=== PATIENT | male | born 1935 | race Caucasian/White ===

== ENCOUNTER 2017-11-13 18:43 | Inpatient (IN) | payer OTHER ==
[2017-11-13] MEDS: ACETAMINOPHEN 325 MG TAB PO (19:32)
[2017-11-13 19:39] LABS: ADD MAN DIFF? NO
[2017-11-13 19:43] LABS: ABNORMAL IP MESSAGE 1; BASOPHILS % 0.2 % (0.0-2.0); EOSINOPHILS % 0.1 % (0.0-7.0); HEMATOCRIT 34.5 % (42.0-52.0); HEMOGLOBIN 11.8 g/dl (14.0-18.0); LYMPHOCYTES # 0.1 10^3/ul (0.8-2.9); LYMPHOCYTES % 1.2 % (15.0-51.0); MEAN CORPUSCULAR HEMOGLOBIN 30.7 pg (29.0-33.0); MEAN CORPUSCULAR HGB CONC 34.2 g/dl (32.0-37.0); MEAN CORPUSCULAR VOLUME 89.8 fl (82.0-101.0); MEAN PLATELET VOLUME 9.2 fl (7.4-10.4); MONOCYTE # 0.1 10^3/ul (0.3-0.9); MONOCYTES % 1.1 % (0.0-11.0); NEUTROPHIL # 7.8 10^3/ul (1.6-7.5); NEUTROPHILS % 96.8 % (39.0-77.0); PLATELET COUNT 413 10^3/UL (140-415); POSITIVE DIFF @See below; RED BLOOD COUNT 3.84 10^6/ul (4.70-6.10); RED CELL DISTRIBUTION WIDTH 13.5 % (11.5-14.5)
[2017-11-13 19:43] LABS: WHITE BLOOD COUNT 8.1 10^3/ul (4.8-10.8)
[2017-11-13 20:01] LABS: ALANINE AMINOTRANSFERASE 57 IU/L (13-69); ALBUMIN 3.6 g/dl (3.3-4.9); ALBUMIN/GLOBULIN RATIO 1.12; ALKALINE PHOSPHATASE 185 IU/L (42-121); ANION GAP 12 (8-16); ASPARTATE AMINO TRANSFERASE 54 IU/L (15-46); BILIRUBIN,INDIRECT 0.9 mg/dl (0-1.1); BILIRUBIN,TOTAL 0.9 mg/dl (0.2-1.3); BLOOD UREA NITROGEN 30 mg/dl (7-20); CALCIUM 8.8 mg/dl (8.4-10.2); CARBON DIOXIDE 28 mmol/L (21-31); CHLORIDE 95 mmol/L (97-110); CREATININE 1.26 mg/dl (0.61-1.24); GLUCOSE 161 mg/dl (70-220); SODIUM 132 mmol/L (135-144); TOTAL PROTEIN 6.8 g/dl (6.1-8.1)
[2017-11-13 20:03] LABS: INR 1.09; PROTIME 14.3 Sec (11.9-14.9); PT RATIO 1.1
[2017-11-13 20:04] LABS: PARTIAL THROMBOPLASTIN TIME 32.6 Sec (25.0-35.0)
[2017-11-13 20:07] LABS: POTASSIUM 2.8 mmol/L (3.5-5.1)
[2017-11-13 20:11] LABS: ADD UMIC YES; UR AMORPHOUS CRYSTAL FEW /HPF (NONE SEEN); UR ASCORBIC ACID NEGATIVE (NEGATIVE); UR BACTERIA FEW /HPF (NONE SEEN); UR BILIRUBIN (Dip) NEGATIVE (NEGATIVE); UR BLOOD (Dip) 1+ mg/dL (NEGATIVE); UR CLARITY CLOUDY (CLEAR); UR COLOR AMBER (YELLOW); UR GLUCOSE (Dip) NEGATIVE (NEGATIVE); UR KETONES (Dip) TRACE mg/dL (NEGATIVE); UR LEUKOCYTE ESTERASE (Dip) NEGATIVE Leu/ul (NEGATIVE); UR MUCUS MODERATE /HPF (NONE SEEN); UR NITRITE (Dip) NEGATIVE (NEGATIVE); UR RBC 1 /HPF (0-5); UR SPECIFIC GRAVITY (Dip) 1.016 (1.003-1.030); UR TOTAL PROTEIN (Dip) 1+ mg/dl (NEGATIVE); UR UROBILINOGEN (Dip) 1+ mg/dL (NEGATIVE); UR WBC 5 /HPF (0-5)
[2017-11-13 20:12] LABS: LACTIC ACID 2.1 mmol/L (0.5-2.0)
[2017-11-13 20:14] LABS: TROPONIN-I 0.039 ng/ml (0.000-0.120); URINE BLOOD (Dip) POC 1+ (NEGATIVE); URINE GLUCOSE (Dip) POC Negative (NEGATIVE); URINE KETONES (Dip) POC Trace (NEGATIVE); URINE LEUKOCYTE EST (Dip) POC Negative (NEGATIVE); URINE NITRITE (Dip) POC Negative (NEGATIVE); URINE TOTAL PROTEIN POC 2+ (NEGATIVE)
[2017-11-13 20:14] LABS: URINE PH (Dip) POC 5.5 (5.0-8.5)
[2017-11-13] MEDS: CEFTRIAXONE 2 GM/50 ML (PMX) 50 ML IVPB (20:18)
[2017-11-13 20:21] LABS: MAGNESIUM 1.5 mg/dl (1.7-2.5)
[2017-11-13] MEDS: SOD CHLORIDE 0.9% IV (20:24)
[2017-11-13] MEDS: VANCOMYCIN 1 GM (PMX) 250 ML IVPB (20:38)
[2017-11-13] MEDS: POTASSIUM CHLORIDE (SR) 20 MEQ TAB PO (20:57)
[2017-11-13] MEDS: POTASSIUM CHLORIDE 100 ML IVPB ×2 (20:57→23:06)
[2017-11-13 21:39] LABS: LACTIC ACID 1.5 mmol/L (0.5-2.0)
[2017-11-13] MEDS: MAGNESIUM OXIDE 400 MG TAB PO (22:13)
[2017-11-13] MEDS: DIPHTH/TET/ACEL PERTUSS (ADULT) 0.5 ML VIAL IM* (22:13)
[2017-11-13 23:38] LABS: LACTIC ACID 1.3 mmol/L (0.5-2.0)
[2017-11-14] MEDS ORDERED: NACL 0.9% 3 ML SYG IV (06:30)
[2017-11-14] MEDS ORDERED: ALBUTEROL/IPRATROPIUM (NEB) 3 ML AMP HHN (06:30)
[2017-11-14] MEDS ORDERED: morphine 2 MG INJ IV (06:30)
[2017-11-14] MEDS: SOD CHLORIDE 0.9% 1,000 ML IV (09:22)
[2017-11-14] MEDS: ACETAMINOPHEN 325 MG TAB PO (09:22)
[2017-11-14 12:11] LABS: ANION GAP 9 (8-16); BLOOD UREA NITROGEN 23 mg/dl (7-20); CALCIUM 8.5 mg/dl (8.4-10.2); CARBON DIOXIDE 28 mmol/L (21-31); CHLORIDE 105 mmol/L (97-110); CREATININE 0.77 mg/dl (0.61-1.24); GLUCOSE 139 mg/dl (70-220); POTASSIUM 3.9 mmol/L (3.5-5.1); SODIUM 138 mmol/L (135-144)
[2017-11-14 12:53] LABS: MAGNESIUM 1.9 mg/dl (1.7-2.5)
== END 2017-11-14 13:07 | disposition left against medical advice (07) | DRG 872 ==
LOC: MS4 20:27 → E/R 18:43
DX: A41.9 Sepsis, unspecified organism (principal); N17.9 Acute kidney failure, unspecified; E86.0 Dehydration; S69.91XA Unspecified injury of right wrist, hand and finger(s), initial encounter; W18.30XA Fall on same level, unspecified, initial encounter; Y92.480 Sidewalk as the place of occurrence of the external cause; M25.511 Pain in right shoulder; M25.561 Pain in right knee; N18.9 Chronic kidney disease, unspecified; E87.6 Hypokalemia
CPT/HCPCS: 36415; 70450; 71045; 73030-RT; 73562; 80048; 80053; 81001; 81003; 82962; 83605; 83735; 84484; 85025; 85610; 85730; 87040; 87045; 87086; 90471; 90715; 93005; 96374; 96375; 99291-25